=== PATIENT | female | born 1980 | race Caucasian/White ===

== ENCOUNTER 2024-03-20 17:19 | Emergency (ER) | payer OTHER ==
[~2024-03-20] VITALS: Ht 167.6 cm; Wt 57.2 kg
[2024-03-20] MEDS ORDERED: FAMOTIDINE/PF INJ 20 MG/2 ML VIAL IV ONE (17:38)
[2024-03-20] MEDS ORDERED: dexaMETHasone SOD PHOSPHATE 1 ML ONE (17:38)
[2024-03-20] MEDS: IV NS 0.9% 1,000 ML BAG IV ONE (17:44)
[2024-03-20] MEDS: FAMOTIDINE/PF INJ 20 MG/2 ML VIAL IV ONE (18:00)
[2024-03-20] MEDS: dexaMETHasone SOD PHOSPHATE 10 MG/ML VIAL IV ONE (18:00)
[2024-03-20 19:17] VITALS: BP 112/78; TEMP 98; O2SAT 99
== END 2024-03-20 19:18 | disposition home or self-care (01) ==
LOC: ER 17:25
DX: R04.0 Epistaxis (principal); T50.995A Adverse effect of other drugs, medicaments and biological substances, initial encounter; L50.0 Allergic urticaria; Z88.8 Allergy status to other drugs, medicaments and biological substances; Y92.89 Other specified places as the place of occurrence of the external cause
CPT/HCPCS: 99284; 96374; 96361; 96375; J1100; J3490; J7030